=== PATIENT | male | born 1950 | race Caucasian/White ===

== ENCOUNTER 2017-06-06 06:10 | Emergency (ER) | payer MEDICARE ==
[2017-06-06] VITALS (7 sets, daily range): BP systolic 79–131; BP diastolic 47–87
[~2017-06-06] VITALS: Ht 182.9 cm; Wt 99.8 kg
[2017-06-06] MEDS ORDERED: Ampicillin/Sulbactam Sod 3 GM in NS 110 ML IV SCH (06:30)
[2017-06-06] MEDS ORDERED: Unasyn 3gm Inj ONE (06:36)
--- NOTE | 2017-06-06 06:44 | Emergency Room Report ---
History of Present Illness General Chief Complaint: CPR Source: EMS Present Illness HPI Patient is a 66-year-old male presented after cardiac arrest. Patient had been noted to be in full arrest by EMS. Patient had isaias airway placed care was ongoing when patient arrived to the hospital. The patient been given epi prior to arrival. Patient had 2 IO was placed by EMS. He was noted to have a some bleeding from injury to his scalp as well as to his upper extremity. History markedly limited by patient's acuity and mental status Allergies: Coded Allergies: UNABLE TO ASSESS (Unverified , 06/06/17) Patient History Past Medical History: see triage record Reviewed Nursing Documentation: PMH: Agreed, PSxH: Agreed Nursing Documentation-PMH Past Medical History Deferred: Patient Unconscious Review of Systems All Other Systems: limited Physical Exam Vital Signs Date Time Temp Pulse Resp B/P (MAP) Pulse Ox O2 Delivery O2 Flow Rate FiO2 06/06/17 06:07 0 06/06/17 06:25 20 100 General Appearance: severe distress, obese Eyes: bilateral eye other - bilateral pupils 4mm nonreactive ENT: TMs + canals normal, other - oropharynx large amount of vomitus Neck: full range of motion Respiratory: normal breath sounds Cardiovascular #1: normal peripheral pulses, regular rate, rhythm Gastrointestinal: normal bowel sounds, non tender, soft Musculoskeletal: swelling, other Neurologic: motor weakness, other - pupils 4mm bilateral, spontaneous breath noted during intubation, withdraws to pain Psychiatric: other - intubated Skin: other - bruising to both shoulders, left arm skin avulsion, left scalp skin avulsion Procedures Critical Care Time Critical Care Time Patient had a critical medical condition which untreated could potentially result in life or limb threatening injury. Total critical care time excluding procedures approximately 45 minutes. Central Line Central Line : Consent: Emergent Central Line Lumen: triple Maximal Sterile Barrier Tech: yes mask, yes sterile gloves, yes large sterile sheet, yes hand hygiene, yes chlorhexidine prep No Max Barrier Tech Because: emergency insertion Central Line Postion: subclavian (R) Complications: none Central Line Post Position: sutured, good blood return, position confirmed w / CXR Attempts: One Patient Tolerated: Well Complications: None Intubation Intubation : Consent: Emergent Time of Intubation: 06:14 Intubation Method: orotracheal Tube Size (cm): 7.5 Medications: Other - none Breath Sounds after Intubation: equal Intubation Complications: no complications Post Intubation Xray: Yes Attempts: One Patient Tolerated: Well Complications: None Medical Decision Making Diagnostic Impression: Primary Impression: Intracranial hemorrhage Additional Impressions: Aspiration pneumonia Coagulopathy Myocardial infarct ER Course Patient presents for cardiac arrest. Differential diagnosis included was not limited to myocardial infarction, hypovolemic shock, overdose, septic shock among others.Because of complexity of patient's case laboratory testing and imaging studies were ordered. The patient was noted be in cardiac arrest. Patient was given epinephrine x1 patient was noted to have a return spontaneous circulation. Patient was intubated with 75 ET tube at 23 cm. Post procedure chest x-ray showed adequate ET tube placement. Right subclavian central line was placed emergently with good placement. There is no evident pneumothorax. The patient started on IV fluids. The patient was noted to have CT the head with a large amount intracranial hemorrhage with left to right midline shift. The patient was given IV Mannitol, and IV Keppra for seizure prophylaxis. Patient was started on Levaophed drip. CT the head read by radiology showed bilateral frontal parenchymal hemorrhages with large hemorrhagic contusion in standing into the ventricle with large amount of vasogenic edema trace subarachnoid hemorrhage. There's impending at tonsillar herniation. The patient was discussed with [facility]. the patient was discussed with [facility] and will be transferred at [facility] for higher-level care. Labs Test 06/06/17 06:25 06/06/17 07:40 White Blood Count 30.6 K/UL (4.8-10.8) Red Blood Count 4.66 M/UL (4.70-6.10) Hemoglobin 14.2 G/DL (14.2-18.0) Hematocrit 43.5 % (42.0-52.0) Mean Corpuscular Volume 93 FL (80-99) Mean Corpuscular Hemoglobin 30.4 PG (27.0-31.0) Mean Corpuscular Hemoglobin Concent 32.6 G/DL (32.0-36.0) Red Cell Distribution Width 12.7 % (11.6-14.8) Platelet Count 89 K/UL (150-450) Mean Platelet Volume 10.3 FL (6.5-10.1) Neutrophils (%) (Auto) % (45.0-75.0) Lymphocytes (%) (Auto) % (20.0-45.0) Monocytes (%) (Auto) % (1.0-10.0) Eosinophils (%) (Auto) % (0.0-3.0) Basophils (%) (Auto) % (0.0-2.0) Prothrombin Time 15.4 SEC (9.30-11.50) Prothromb Time International Ratio 1.5 (0.9-1.1) Activated Partial Thromboplast Time 43 SEC (23-33) Urine Color Yellow Urine Appearance Clear Urine pH 6 (4.5-8.0) Urine Specific [place] 1.020 (1.005-1.035) Urine Protein 2+ (NEGATIVE) Urine Glucose (UA) Negative (NEGATIVE) Urine Ketones 2+ (NEGATIVE) Urine Occult Blood 3+ (NEGATIVE) Urine Nitrite Negative (NEGATIVE) Urine Bilirubin Negative (NEGATIVE) Urine Urobilinogen Normal MG/DL (0.0-1.0) Urine Leukocyte Esterase 1+ (NEGATIVE) Urine RBC 2-4 /HPF (0 - 0) Urine WBC 2-4 /HPF (0 - 0) Urine Squamous Epithelial Cells Occasional /LPF Urine Bacteria Occasional /HPF (NONE) Sodium Level 140 MMOL/L (136-145) Potassium Level 3.4 MMOL/L (3.5-5.1) Chloride Level 99 MMOL/L (98-107) Carbon Dioxide Level 25 MMOL/L (21-32) Anion Gap 16 mmol/L (5-15) Blood Urea Nitrogen 18 mg/dL (7-18) Creatinine 2.2 MG/DL (0.55-1.30) Estimat Glomerular Filtration Rate 30.1 mL/min (>60) Glucose Level 204 MG/DL (74-106) Lactic Acid Level 9.70 mmol/L (0.66-2.22) Calcium Level 8.0 MG/DL (8.5-10.1) Total Bilirubin 0.6 MG/DL (0.2-1.0) Aspartate Amino Transf (AST/SGOT) 103 U/L (15-37) Alanine Aminotransferase (ALT/SGPT) 51 U/L (12-78) Alkaline Phosphatase 150 U/L (46-116) Total Creatine Kinase 2253 U/L (26-308) Creatine Kinase MB 20.1 NG/ML (0.0-3.6) Creatine Kinase MB Relative Index 0.8 Troponin I 5.441 ng/mL (0.000-0.056) Total Protein 6.7 G/DL (6.4-8.2) Albumin 1.9 G/DL (3.4-5.0) Globulin 4.8 g/dL Albumin/Globulin Ratio 0.4 (1.0-2.7) Arterial Blood pH 7.410 (7.350-7.450) Arterial Blood Partial Pressure CO2 33.5 mmHg (35.0-45.0) Arterial Blood Partial Pressure O2 81.4 mmHg (75.0-100.0) Arterial Blood HCO3 21.0 mmol/L (22.0-26.0) Arterial Blood Oxygen Saturation 94.5 % (92.0-98.0) Arterial Blood Base Excess -2.8 Socrates Test Positive EKG Diagnostic Results Rate: tachycardiac - 130 ST Segments: no acute changes Rhythm Strip Diag. Results EP Interpretation: yes Rhythm: NSR, no PVC's Last Vital Signs Date Time Temp Pulse Resp B/P (MAP) Pulse Ox O2 Delivery O2 Flow Rate FiO2 06/06/17 06:25 129 20 100 Status: unchanged Disposition: XFER T-TRM HOSP Condition: Critical Dat Sky Jun 06, 2017 06:44
[2017-06-06 06:51] LABS: MEAN CORPUSCULAR HEMOGLOBIN 30.4 PG (27.0-31.0); MEAN CORPUSCULAR HGB CONC 32.6 G/DL (32.0-36.0); MEAN CORPUSCULAR VOLUME 93 FL (80-99); MEAN PLATELET VOLUME 10.3 FL (6.5-10.1); PLATELET COUNT 89 K/UL (150-450); RED BLOOD COUNT 4.66 M/UL (4.70-6.10); RED CELL DISTRIBUTION WIDTH 12.7 % (11.6-14.8)
[2017-06-06 06:52] LABS: WHITE BLOOD COUNT 30.6 K/UL (4.8-10.8)
[2017-06-06 06:55] LABS: APPEARANCE,URINE CLEAR; KETONES,URINE 2+ (NEGATIVE); LEUKOCYTE ESTERASE ,URINE 1+ (NEGATIVE); NITRITE,URINE NEGATIVE (NEGATIVE); PH,URINE 6 (4.5-8.0); PROTEIN,URINE 2+ (NEGATIVE); UROBILINOGEN,URINE NORMAL MG/DL (0.0-1.0)
[2017-06-06 06:56] LABS: ANION GAP 16 mmol/L (5-15); CARBON DIOXIDE 25 MMOL/L (21-32); CHLORIDE 99 MMOL/L (98-107); CREATININE 2.2 MG/DL (0.55-1.30); GLOMERULAR FILTRATION RATE 30.1 mL/min (>60); POTASSIUM 3.4 MMOL/L (3.5-5.1); SODIUM 140 MMOL/L (136-145)
[2017-06-06] MEDS ORDERED: Pantoprazole Inj IVP ONE (07:00)
[2017-06-06 07:04] LABS: INR 1.5 (0.9-1.1); PROTHROMBIN TIME 15.4 SEC (9.30-11.50)
[2017-06-06 07:10] LABS: ALANINE AMINOTRANSFERASE 51 U/L (12-78); ALBUMIN/GLOBULIN RATIO 0.4 (1.0-2.7); ASPARTATE AMINO TRANSFERASE 103 U/L (15-37); CKMB 20.1 NG/ML (0.0-3.6); TOTAL PROTEIN 6.7 G/DL (6.4-8.2)
[2017-06-06 07:16] LABS: BACTERIA,URINE OCCASIONAL /HPF; SQUAMOUS EPITHELIAL CELL,UR OCCASIONAL /LPF (NONE/OCC)
[2017-06-06 07:25] LABS: REFLEX LACTIC ACID YES OR NO YES
[2017-06-06] MEDS ORDERED: Phytonadione 10 mg/mL 1ml amp SUBQ ONE (07:30)
[2017-06-06] MEDS ORDERED: levETIRAcetam 1,000mg/NS100ml 100 ML IVPB ONE (07:30)
[2017-06-06] MEDS ORDERED: Levophed 4mg/4mL Inj IV ONE (07:44)
[2017-06-06 07:47] LABS: ABG ALLEN TEST POSITIVE; ABG BASE EXCESS -2.8; ABG PCO2 33.5 mmHg (35.0-45.0)
[2017-06-06] MEDS ORDERED: Mannitol 20% IV 500 ML ONE (07:47)
[2017-06-06] MEDS ORDERED: Mannitol 20% IV 500 ML IV ONE (08:15)
[2017-06-06 08:18] LABS: BAND NEUTROPHILS % (MANUAL) 0 % (0-8); BASOPHILS % (MANUAL) 0 % (0-2); EOSINOPHILS % (MANUAL) 0 % (0-3); LYMPHOCYTES % (MANUAL) 6 % (20-45); NEUTROPHILS % (MANUAL) 83 % (45-75); PLATELET ESTIMATE DECREASED; PLATELET MORPHOLOGY NORMAL; TOTAL CELLS COUNTED 100
--- NOTE | 2017-06-06 10:41 | Diagnostic Imaging Report ---
Indication: Abdominal pain Technique: Spiral acquisitions obtained through the abdomen and pelvis. No oral contrast utilized, per emergency room physician request No IV contrast utilized, per emergency room physician request. Multiplanar reconstructions were generated. Total dose length product 1170 mGycm. CTDIvol(s) 20 mGy. Dose reduction achieved using automated exposure control Comparison: None Findings: There is fairly extensive colonic diverticulosis. There is mild wall thickening of the sigmoid and to lesser extent the descending colon. There is mild stranding of the pericolonic fat in this region. Prominent mesenteric lymph nodes are present. There is marked gaseous distention of the cecum and proximal ascending colon. No definite obstructive lesion demonstrated. There is also mild gaseous distention of the terminal and distal ileum which extends to the level of the ileocecal valve. The appendix is not definitely visualized, there are no findings to suggest acute appendicitis are evident. There is a nasogastric tube in place, nasogastric tube tip at the level gastric body. The stomach is mostly decompressed. No free or loculated intraperitoneal air or fluid. There are bilateral fat-containing inguinal hernias. Lack of IV contrast limits assessment of the solid organs. The gallbladder contains gallstones. The liver, bile ducts, pancreas, spleen, adrenals, kidneys are unremarkable. There are prominent but not frankly enlarged retroperitoneal nodes present. Prominent but not frankly enlarged bilateral pelvic lymph nodes are also demonstrated. No pelvic mass or adenopathy. There is a Borden catheter within the bladder, which is nondistended. The included lung bases demonstrate fairly extensive consolidation and atelectasis of much of both lower lobes. The heart is enlarged. The bones demonstrate minimal degenerative spondylosis changes. There is a superior endplate compression fracture deformity of the T11 vertebral body, and a wedge compression fracture deformity of the T9 vertebral body Impression: Diverticulosis Wall thickening of the sigmoid and descending colon. Could be circular muscle hypertrophy related to diverticulosis, but could indicate colitis. Considerable gas in the small bowel without obstructive lesion demonstrated, may reflect mild ileus secondary to the above Nonspecific mild mesenteric lymphadenopathy Bilateral basilar pulmonary parenchymal opacities, likely pneumonia and atelectasis Vertebral body compression fractures as described, age indeterminate but suspect old. Consider MRI for better characterization is clinically relevant Cardiomegaly graph other findings as noted, including degenerative spondylosis, Borden catheter, bilateral fat-containing inguinal hernias, nasogastric tube This agrees with the preliminary interpretation provided overnight by [facility]erad[facility]. The CT scanner at [facility] is accredited by the [employer] and the scans are performed using protocols designed to limit radiation exposure to as low as reasonably achievable to attain images of sufficient resolution adequate for diagnostic evaluation.
--- NOTE | 2017-06-06 10:51 | Diagnostic Imaging Report ---
Indications: Altered metal status Technique: Spiral acquisitions obtained through the brain. Angled axial and coronal 5 x 5 mm slices were reconstructed. Total dose length product 59 mGycm. CTDI vol(s) 70 mGy. Dose reduction achieved using automated exposure control Comparison: None Findings: Extensive blood is seen in the bilateral frontal regions. Some of this is parenchymal but there is a considerable subarachnoid portion expanding the bilateral frontal sulci. There is also blood filling essentially the entirety of the left lateral ventricle. Blood is also seen within the third and probably fourth ventricles. There is extensive cerebral edema. There is severe effacement of the ventricles as well as the peripheral sulci. Note slight relative dilatation of the atrium of the right lateral ventricle, could indicate ventricular entrapment. There is as decreased but not complete loss of hampton-white differentiation. Suspect that the origin of the bleed is in the left frontal lobe, as the hematoma extends contiguously from the some ependymal region to the cortical surface, as well as crossing the midline. Alternatively, these could represent synchronous bilateral frontal parenchymal hemorrhages. Subarachnoid blood is seen diffusely throughout the convexity sulci, as well as within the basilar cisterns. The basilar cisterns are nearly completely effaced. There is also approximately 8 cm of left to right midline shift. There is also low position of the cerebellar tonsils There is considerable ethmoid and nasal fossa disease. The calvarium is intact. There is some left lateral frontal region soft tissue swelling. Impression: Extensive bilateral frontal parenchymal blood, with extension into and dilatation of the frontal and anterior parietal CSF spaces by subarachnoid blood. There is also diffuse subarachnoid blood elsewhere and blood within the ventricular system. Findings may reflect bifrontal contusions versus primary intraparenchymal hypertensive hemorrhage, either bilateral or originating on the left and extending into the right. Severe mass effect, with effacement of the ventricular system, effacement of the basilar cisterns suspicious for uncal herniation, and low position of the cerebellar tonsils worrisome for impending tonsillar herniation. There is also 8 mm of left to right midline shift Evidence of diffuse cerebral edema Minimal left frontal region soft tissue swelling, may indicate recent trauma Sinonasal disease This agrees with the preliminary interpretation provided overnight by [facility]. The CT scanner at [facility] is accredited by the [employer] and the scans are performed using protocols designed to limit radiation exposure to as low as reasonably achievable to attain images of sufficient resolution adequate for diagnostic evaluation.
--- NOTE | 2017-06-06 14:33 | Diagnostic Imaging Report ---
Indication: SOB, status post intubation Technique: One view of the chest Comparison: none Findings: There is an endotracheal tube in place, tip projected approximately 5 cm above the rosalio, in good position. There is a nasogastric tube in place, tip projected at the level of the gastric fundus, in good position. Inspiration is suboptimal. Lungs and right pleural space are grossly clear.. There is equivocal slight blunting of left costophrenic angle The heart is enlarged Impression: Satisfactory endotracheal and nasogastric intubation Hypoventilatory exam. Cannot rule out trace left pleural effusion Cardiomegaly
--- NOTE | 2017-06-07 16:58 | Cardiology Report ---
APPROVED REPORT EKG Measurement Heart [id number] N[address] abnormality Abnormal ECG
== END 2017-06-06 09:10 | disposition short-term general hospital (02) ==
LOC: EDBD 06:10 → EMR 06:50
DX: I62.9 Nontraumatic intracranial hemorrhage, unspecified (principal); J69.0 Pneumonitis due to inhalation of food and vomit; I21.9 Acute myocardial infarction, unspecified; R79.1 Abnormal coagulation profile; S40.012A Contusion of left shoulder, initial encounter; S40.011A Contusion of right shoulder, initial encounter; S08.0XXA Avulsion of scalp, initial encounter; X58.XXXA Exposure to other specified factors, initial encounter; Y92.9 Unspecified place or not applicable
CPT/HCPCS: 31500; 36415; 36569; 36600; 51702; 70450; 71010; 74176; 80053; 80307; 81003; 82550; 82553; 82803; 83605; 84484; 85007; 85025; 85610; 85730; 87040; 87081; 92950; 93005; 94002; 96361; 96365; 96366; 96372; 96375; 96376; 99291; C9113; J0171; J0295; J1953; J2150; J3430; J3490; S0028